=== PATIENT | female | born 1955 | race Two or more races ===

== ENCOUNTER 2017-12-01 06:09 | Emergency (ER) | payer OTHER ==
[~2017-12-01] VITALS: Ht 157.5 cm; Wt 95.3 kg
[~2017-12-01 06:09] MED LIST: ATACAND16 MG PO; VYTORIN 10-20 M1 TAB PO
[2017-12-01] MEDS ORDERED: SIMVASTATIN40 MG (06:32)
[2017-12-01] MEDS ORDERED: CANDESARTAN-HC1 EAC1 (06:32)
[2017-12-01] MEDS ORDERED: METFORMIN HCL500 M2 (06:33)
[2017-12-01] MEDS ORDERED: CELEBREX100 MG PO (11:46)
[2017-12-01] MEDS ORDERED: SKELAXIN800 MG PO (11:46)
== END 2017-12-01 12:41 | disposition home or self-care (01) ==
LOC: ER 06:09
DX: M54.5 Low back pain (principal)

== ENCOUNTER 2017-12-02 23:39 | Emergency (ER) | payer OTHER ==
[~2017-12-02] VITALS: Ht 157.5 cm; Wt 92.1 kg
[~2017-12-02 23:39] MED LIST changes: +CANDESARTAN-HC1 EAC1; +CELEBREX100 MG PO; +METFORMIN HCL500 M2; +SIMVASTATIN40 MG; +SKELAXIN800 MG PO
[2017-12-03] MEDS ORDERED: DOLOGESIC 500-1 EACH PO (06:20)
== END 2017-12-03 06:33 ==
LOC: ER 23:39
DX: N20.0 Calculus of kidney (principal)

== ENCOUNTER → 2021-01-30 08:00 | Outpatient (CLI) | payer OTHER ==
[~2021-01-30] VITALS: Ht 157.5 cm; Wt 92.5 kg
[~2021-01-30 08:00] MED LIST changes: +AMLODIP PO; +DOLOGESIC 500-1 EACH PO; +FORTAMET1000 MG PO
== END | disposition home or self-care (01) ==
LOC: LAB 08:00 → OB/GYN 02-04 07:30 → EDSTATUS 02-04 07:30
PROVIDERS: ATTEND Obstetrics & Gynecology
DX: N81.89 Other female genital prolapse (principal); N84.0 Polyp of corpus uteri; Z01.810 Encounter for preprocedural cardiovascular examination; Z01.811 Encounter for preprocedural respiratory examination

== ENCOUNTER 2021-06-09 09:00 | Inpatient (IN) | payer OTHER ==
[~2021-06-09] VITALS: Ht 157.5 cm; Wt 92.5 kg
[2021-06-17] MEDS ORDERED: NORVASC2.5 M1 PO (07:53)
== END 2021-06-19 10:13 | disposition home or self-care (01) | DRG 743 ==
LOC: O/R 06-17 05:20 → OB/GYN 06-17 09:00
PROVIDERS: ADMIT Obstetrics & Gynecology; ATTEND Obstetrics & Gynecology
PROC: 0JQC0ZZ Repair Pelvic Region Subcutaneous Tissue and Fascia, Open Approach (ICD-10-PCS; 2021-06-17)
PROC: 0UT97ZZ Resection of Uterus, Via Natural or Artificial Opening (ICD-10-PCS; principal; 2021-06-17 10:15)
DX: N84.0 Polyp of corpus uteri (principal); N81.11 Cystocele, midline; Z20.822 Contact with and (suspected) exposure to COVID-19

== ENCOUNTER 2021-06-16 11:38 | Outpatient (CLI) | payer OTHER ==
[2021-06-17] MEDS ORDERED: NORVASC2.5 M1 PO (07:53)
== END 2021-06-16 15:12 | disposition home or self-care (01) ==
LOC: LAB 11:38
PROVIDERS: ATTEND Obstetrics & Gynecology
DX: Z20.822 Contact with and (suspected) exposure to COVID-19 (principal)